=== PATIENT | female | born 1980 | race American Indian/Alaskan Native ===

== ENCOUNTER 2016-06-27 13:04 | Outpatient (CLI) | payer MEDICARE ==
--- NOTE | 2016-06-27 14:34 | XRay Report ---
ABDOMEN RADIOGRAPHS INDICATION: Vena cava syndrome. COMPARISON: 08/14/2015 FINDINGS: Frontal abdominal radiographs demonstrate interval right groin port removal. Stable IVC filter projecting at L2-L3 on the right and adjacent cholecystectomy clips. An orthopedic compression screw in the right femoral head and neck again noted as also chronic left hip deformity with dislocation and superior migration of the left femur. Osteopenia/osteoporosis. Nonobstructive bowel gas pattern. Hepatomegaly suspected. Clear visualized lung bases. Top normal heart size. CONCLUSION: Various findings, as above. Please correlate. Thank you for the opportunity to participate in this patient's care.
== END 2016-06-27 13:05 | disposition home or self-care (01) ==
LOC: VAS 13:04
PROVIDERS: ATTEND Internal Medicine Hematology & Oncology
DX: I87.1 Compression of vein (principal); M79.89 Other specified soft tissue disorders; Z86.718 Personal history of other venous thrombosis and embolism
CPT/HCPCS: 74000; 93970

== ENCOUNTER 2016-11-16 05:24 | Inpatient (IN) | payer MEDICARE ==
[2016-11-16] MEDS ORDERED: NACL 0.9% 1000 ML 1,000 ML IV ONE (16:15)
[2016-11-16] MEDS ORDERED: BENADRYL IV ONE (16:15)
[2016-11-16] MEDS ORDERED: DILAUDID IV ONE ×2 (16:15→19:14)
--- NOTE | 2016-11-16 16:20 | Emergency Department Report ---
ED General Adult HPI - General Chief complaint: Sickle Cell Crisis Stated complaint: SICKLE CELL CRISIS Time Seen by Provider: 11/16/16 15:51 Source: patient, family Mode of arrival: Ambulatory Limitations: No Limitations - History of Present Illness Initial comments: Recent female here with complaint of sickle cell pain. 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 This is not been able to manage her pain over the course of last week. She is complaining of diffuse leg and arm pain. She has some mild chest pain. She did not feel that this is acute chest. No fevers chills. She's does not have a cough. She is a known history of SVC syndrome. She is a port in her left upper thigh. -: Gradual Location: chest, upper extremity, lower extremity Radiation: non-radiation Quality: aching Consistency: constant Improves with: none, medication Worsens with: none Associated Symptoms: denies: confusion, cough, diaphoresis, fever/chills - Related Data Home Medications Medication Instructions Recorded Confirmed Last Taken Folic Acid [Folvite] 1 mg PO DAILY 06/01/13 11/16/16 05/04/15 Methadone [Dolophine] 20 mg PO Q8H 03/27/15 11/16/16 07/21/16 Previous Rx's Medication Instructions Recorded Last Taken Type Oxycodone HCl/Acetaminophen 1 each PO Q6HR PRN #15 tablet 10/09/14 05/03/15 Rx [Percocet 7.5/325 mg] Allergies Allergy/AdvReac Type Severity Reaction Status Date / Time ketorolac tromethamine Allergy Hives Verified 06/27/14 09:21 [From Toradol] metoclopramide HCl Allergy Unknown Verified 06/27/14 09:21 [From Reglan] morphine Allergy Hives Verified 06/27/14 09:21 propoxyphene napsylate Allergy Hives Verified 06/27/14 09:21 [From Darvocet-N 100] ceftriaxone sodium AdvReac Unknown Verified 06/27/14 09:21 [From Rocephin] heparin AdvReac Bleeding Verified 06/27/14 09:21 ED Review of Systems ROS: Stated complaint: SICKLE CELL CRISIS Other details as noted in HPI Comment: All other systems reviewed and negative Constitutional: denies: chills, fever Eyes: denies: eye pain, eye discharge, vision change ENT: denies: ear pain, throat pain Respiratory: denies: cough, shortness of breath, wheezing Cardiovascular: chest pain. denies: palpitations Endocrine: no symptoms reported Gastrointestinal: denies: abdominal pain, nausea, diarrhea Genitourinary: denies: urgency, dysuria, discharge Musculoskeletal: joint swelling, arthralgia. 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 7 ports total the last one being placed in April of this year. The others had to be removed secondary toinfection.IVC filterPort Placed to Right groin. - Family History Family history: no significant - Social History Smoking Status: Never Smoker Substance Use Type: None - Medications Home Medications: Home Medications Medication Instructions Recorded Confirmed Last Taken Type Folic Acid [Folvite] 1 mg PO DAILY 06/01/13 11/16/16 05/04/15 History Oxycodone HCl/Acetaminophen 1 each PO Q6HR PRN #15 tablet 10/09/14 11/16/16 Rx [Percocet 7.5/325 mg] Methadone [Dolophine] 20 mg PO Q8H 03/27/15 11/16/16 07/21/16 History ED Physical Exam - General Limitations: No Limitations General appearance: alert, in no apparent distress - Head Head exam: Present: atraumatic, normocephalic - Eye Eye exam: Present: normal appearance - ENT ENT exam: Present: mucous membranes moist - Neck Neck exam: Present: normal inspection, other (swelling in the face and veins in upper chest). Absent: tenderness, lymphadenopathy - Respiratory Respiratory exam: Present: normal lung sounds bilaterally, other (known history of SVC syndrome). Absent: respiratory distress, chest wall tenderness - Cardiovascular Cardiovascular Exam: Present: regular rate, normal rhythm. Absent: systolic murmur, diastolic murmur, rubs, gallop - GI/Abdominal GI/Abdominal exam: Present: soft, normal bowel sounds. Absent: distended, tenderness - Extremities Exam Extremities exam: Present: normal inspection, other (port in the left upper thigh) - Back Exam Back exam: Present: normal inspection - Neurological Exam Neurological exam: Present: alert, oriented X3 - Psychiatric Psychiatric exam: Present: normal affect, normal mood - Skin Skin exam: Present: warm, dry, intact, normal color. Absent: rash ED Course Vital Signs 11/16/16 05:25 Temperature 98.5 F Pulse Rate 90 Blood Pressure 121/50 ED Medical Decision Making - Lab Data Result diagrams: 11/16/16 18:21 11/16/16 18:21 - Medical Decision Making 36-year-old female with history of sickle cell and SVC syndrome here with complaint of total body pain. Denies fevers chills nausea vomiting. States some mild chest pain but does not feel this is consistent with acute chest. Plan to treat with pain and will plan to reassess patient. Patient with extremely low hemoglobin of 3.1. Type and screen ordered. Plan to transfuse patient admit to the intensive care unit. Type and crossmatch ordered blood ordered. Discussed case with hospital medicine. Portions of this chart were dictated with dictation software. There may be dictation errors contained within this note. Critical Care Time: Yes Critical care attestation.: If time is entered above; I have spent that time in minutes in the direct care of this critically ill patient, excluding procedure time. Critical Care Time: 45 ED Disposition Clinical Impression: Sickle cell anemia with crisis, Anemia Disposition: [id number] OP ADMIT IP TO THIS HOSP Is pt being admited?: Yes Condition: Critical Referrals: ZEINAB BECKHAM DO [Primary Care Provider] - 3-5 Days
[2016-11-16 18:42] LABS: Mean Corpuscular HGB Conc 33 % (30-34); Mean Corpuscular Hemoglobin 28 pg (28-32); Mean Corpuscular Volume 82 fl (79-97); Platelet Count 209 K/mm3 (140-440); Red Blood Count 1.14 M/mm3 (3.65-5.03)
[2016-11-16 18:43] LABS: Reticulocyte % 2.18 % (0.78-2.58)
[2016-11-16 18:52] LABS: INR 1.27 (0.87-1.13)
[2016-11-16 18:57] LABS: Hematocrit 9.4 % (30.3-42.9); Hemoglobin 3.1 gm/dl (10.1-14.3); Red Cell Distribution Width 26.2 % (13.2-15.2)
[2016-11-16 19:00] LABS: Albumin 3.8 g/dL (3.9-5); Albumin/Globulin Ratio 1.1 %; Bilirubin,Total 2.8 mg/dL (0.1-1.2); Calcium 8.4 mg/dL (8.4-10.2); Chloride 93.9 mmol/L (98-107); Potassium 4.7 mmol/L (3.6-5.0); Total Protein 7.3 g/dL (6.3-8.2)
[2016-11-16 20:12] LABS: Basophils % (Manual) 0 % (0.0-1.8); Blastocytes % (Manual) 0 %; Eosinophils % (Manual) 0 % (0.0-4.3)
[2016-11-16 20:16] LABS: Anisocytosis 2+; Diff Status Complete; Hypochromasia 2+; Platelet Estimate Consistent w Auto; Polychromasia 1+; Sickle Cells 2+; Target Cells 2+
[2016-11-16 20:24] LABS: White Blood Count 17.5 K/mm3 (4.5-11.0)
[2016-11-16] MEDS ORDERED: NACL 0.9% 500 ML 500 ML IV ONE (20:52)
[2016-11-16] MEDS ORDERED: DILAUDID ONE (22:05)
[2016-11-16] MEDS ORDERED: ZOFRAN IV PRN (22:27)
[2016-11-16] MEDS ORDERED: TYLENOL PO PRN (22:30)
[2016-11-17] MEDS: NACL 0.9% 1000 ML 1,000 ML IV SCH ×2 (00:50→06:19)
[2016-11-17 01:04] LABS: Hematocrit 10.3 % (30.3-42.9)
[2016-11-17 01:05] LABS: Hemoglobin 3.3 gm/dl (10.1-14.3)
[2016-11-17] MEDS: DILAUDID IV PRN ×4 (01:41→21:04)
[2016-11-17] MEDS: DOLOPHINE PO SCH ×3 (06:18→21:05)
--- NOTE | 2016-11-17 07:26 | History and Physical Report ---
CHIEF COMPLAINT: Generalized body pain. Other complaints include weakness. HISTORY OF PRESENT ILLNESS: The patient is a 36-year-old female with sickle cell anemia, presenting with pain all over. The patient says she has not been able to manage her pain, going on for the last few days, on oral pain medication. She said that the pain is mostly in the limbs and also a little bit in the chest. There was no history of fever or chills and no history of cough. The patient also denies history of shortness of breath and there was no history of nausea, vomiting or diarrhea. The patient presented to the Emergency Room. PAST MEDICAL HISTORY: Pertinent for sickle cell anemia. Also, the patient has past history of hypertension, deep vein thrombosis, pulmonary embolism as well as avascular necrosis of bilateral hips and bilateral shoulder. Also, the patient has past history of SVT. PAST SURGICAL HISTORY: Pertinent for cholecystectomy, x 2, tubal ligation, bilateral hip surgery, PowerPort abscess removal from the throat, placement of PowerPort in the chest area. FAMILY HISTORY: Noncontributory. SOCIAL HISTORY: The patient does not smoke, does not drink alcohol and does not use illicit drugs. MEDICATIONS: The patient is on folic acid 1 by mouth daily, Percocet 7.5/325 mg one by mouth every 6 hours as needed for pain and methadone 20 mg by mouth every 8 hours. ALLERGIES: THE PATIENT IS ALLERGIC TO KETOROLAC . Also, THE PATIENT IS ALLERGIC TO METOCLOPRAMIDE AND MORPHINE. REVIEW OF SYSTEMS: CONSTITUTIONAL: There is no fever, no chills, no diaphoresis. HEENT: There is no headache or sore throat. CARDIOVASCULAR: There is some mild chest discomfort, but no orthopnea. RESPIRATORY: There is no shortness of breath and no cough. GASTROINTESTINAL: There is no nausea, no vomiting, no abdominal pain, diarrhea or constipation. NEUROLOGICAL: There is no numbness, no dizziness, no altered mental status. MUSCULOSKELETAL: Generalized limb pain noted and pain all over the body also noted. There is no joint swelling. DERMATOLOGICAL: There is no skin rash or itching. GENITOURINARY: There is no dysuria, hematuria or flank pain. Rest of system review is normal. PHYSICAL EXAMINATION: GENERAL: At the time of exam, the patient was found to be alert and oriented x 3 and in mild distress due to body pain. VITAL SIGNS: Shows temperature of 98.6 degrees Fahrenheit, pulse of 92, respirations 18, blood pressure 92/34, O2 sat of 100% on room air. HEENT: Showed pupils to be equal, round, reactive to light and accommodating. Extraocular muscles are intact. NECK: Supple with no JVD or carotid bruit. CARDIOVASCULAR: Showed normal first and second heart sounds with no gallops or murmurs. RESPIRATORY: Showed good air entry on both sides of the lung with no abnormal breath sounds. GASTROINTESTINAL SYSTEM: Show abdomen to be full, soft, nontender with no organomegaly or rigidity. NEUROLOGIC: Shows no focal deficit. MUSCULOSKELETAL: Show no joint swelling or tenderness. DERMATOLOGICAL SYSTEM: Show no skin rash. GENITOURINARY: Showing no costovertebral angle tenderness. PERTINENT LABORATORY DATA AND IMAGING STUDIES: The patient's coagulation studies came back with slightly elevated PT of 15.8 and elevated INR of 1.27. The patient's chemistry shows low sodium of 134 with low chloride of 93.9 and low CO2 of 20 with elevated BUN of 69 and elevated creatinine of 2.3. The patient's total bilirubin was high with a value of 2.8 and liver transaminases show slight increase in AST of 62 with normal ALT. The patient's CBC showed an elevated white count of 17,500 with low hemoglobin of 3.1 and low hematocrit of 9.4. MCV level is normal. IMAGING STUDIES: The patient had chest x-ray done with no report of any acute lesion. DIAGNOSES: 1. Sickle cell vaso-occlusive crisis. 2. Renal insufficiency. PLAN: The patient will be admitted to medical floor on telemetry and will be on IV normal saline at 125 mL an hour until blood arrives and the patient will have transfusion of packed red blood cells ordered in the Emergency Room. The patient will be on IV Dilaudid 1 mg every 2 hours as needed for pain and will be on IV Zofran 4 mg every 8 hours as needed for nausea and vomiting. The patient will be on Tylenol 650 mg every 4 hours as needed for fever and headache and will have Hematology consult with office services clerk Dr. Morgan. The patient's diet will be low sodium diet and the patient's home medications will be reconciled and started. According to the patient, she will be on Restoril 15 mg at bedtime for insomnia. The patient will also have Nephrology consult with plumber maintenance Dr. Le for renal insufficiency. JOB# [id number] OCN/NTS MARVIND
--- NOTE | 2016-11-17 08:41 | XRay Report ---
Portable chest: Chest pain; sickle cell. The heart is big. There is mild vascular congestion. The interstitial markings are diffusely coarse throughout both lungs. No pleural effusions identified. Sclerotic areas in both of the humerus head consistent with infarcts. Compared to prior study of July 22, 2016 been no significant changes. Impression: Cardiopulmonary and bone findings consistent with sickle cell disease. No acute findings noted.
--- NOTE | 2016-11-17 08:59 | Progress Note ---
Assessment and Plan Assessment and plan: Kamila is a36 year old female with hx of Sickle cell presenting to the hosptial with complaint of chest pain and b/l lower ext pain with no associated cough or shortness of breath and on admission noted to have severe Anemia with TEODORO Sickle Cell Crisis * Supportive care, pain control, mvi, folic acid, Hematology consult, change fluids to D51/2NS Severe Anemia secondary to Sickle cell * 2 units PRBC ordered, check Retic count, Acute kidney injury possible vasomotor nephropathy * Nephrology input noted. continue hydration, follow pending labs Atypical chest pain- Likely demand ischemia * supportive care, monitor BP, low H/H precludes ASA. check lipid profile. Monitor cardiac enzyme B/L lower ext pain * R/O DVT. HX OF SVC syndrome DVT/GI prophy * SCD AND H2 altagracia History Interval history: patient seen and examined, resting in no acute distress. Hospitalist Physical - Constitutional Vitals: Temp Pulse Resp BP Pulse Ox 99.7 F H 94 H 20 115/53 95 11/17/16 01:14 11/17/16 05:33 11/17/16 05:33 11/17/16 05:33 11/17/16 01:00 General appearance: Present: no acute distress, well-nourished - EENT Eyes: Present: PERRL, EOM intact ENT: hearing intact, clear oral mucosa - Neck Neck: Present: supple, normal ROM - Respiratory Respiratory effort: normal Respiratory: bilateral: CTA - Cardiovascular Rhythm: regular Heart Sounds: Present: S1 & S2 - Extremities Extremities: pulses intact, pulses symmetrical, No edema - Abdominal General gastrointestinal: soft, non-tender, non-distended, normal bowel sounds - Integumentary Integumentary: Present: clear, warm, dry - Psychiatric Psychiatric: appropriate mood/affect, cooperative - Neurologic Neurologic: CNII-XII intact - Allied Health Allied health notes reviewed: nursing Results - Labs CBC & Chem 7: 11/17/16 23:16 11/16/16 18:21 Labs: Laboratory Last Values WBC 17.5 K/mm3 (4.5-11.0) H 11/16/16 18:21 RBC 1.14 M/mm3 (3.65-5.03) L 11/16/16 18:21 Hgb 3.3 gm/dl (10.1-14.3) L* 11/17/16 00:14 Hct 10.3 % (30.3-42.9) L* 11/17/16 00:14 MCV 82 fl (79-97) 11/16/16 18:21 MCH 28 pg (28-32) 11/16/16 18:21 MCHC 33 % (30-34) 11/16/16 18:21 RDW 26.2 % (13.2-15.2) H 11/16/16 18:21 Plt Count 209 K/mm3 (140-440) 11/16/16 18:21 Lymph # Deep Fryer Assembler 11/16/16 18:21 Add Manual Diff Complete 11/16/16 18:21 Total Counted 100 11/16/16 18:21 Seg Neuts % (Manual) 54.0 % (40.0-70.0) 11/16/16 18:21 Band Neutrophils % 20.0 % 11/16/16 18:21 Lymphocytes % (Manual) 18.0 % (13.4-35.0) 11/16/16 18:21 Reactive Lymphs % (Man) 0 % 11/16/16 18:21 Monocytes % (Manual) 8.0 % (0.0-7.3) H 11/16/16 18:21 Eosinophils % (Manual) 0 % (0.0-4.3) 11/16/16 18:21 Basophils % (Manual) 0 % (0.0-1.8) 11/16/16 18:21 Metamyelocytes % 0 % 11/16/16 18:21 Myelocytes % 0 % 11/16/16 18:21 Promyelocytes % 0 % 11/16/16 18:21 Blast Cells % 0 % 11/16/16 18:21 Nucleated RBC % 156.0 % (0.0-0.9) H 11/16/16 18:21 Seg Neutrophils # Man 1.1 K/mm3 (1.8-7.7) L 11/16/16 18:21 Band Neutrophils # 0.4 K/mm3 11/16/16 18:21 Lymphocytes # (Manual) 0.4 K/mm3 (1.2-5.4) L 11/16/16 18:21 Abs React Lymphs (Man) 0.0 K/mm3 11/16/16 18:21 Monocytes # (Manual) 0.2 K/mm3 (0.0-0.8) 11/16/16 18:21 Eosinophils # (Manual) 0.0 K/mm3 (0.0-0.4) 11/16/16 18:21 Basophils # (Manual) 0.0 K/mm3 (0.0-0.1) 11/16/16 18:21 Metamyelocytes # 0.0 K/mm3 11/16/16 18:21 Myelocytes # 0.0 K/mm3 11/16/16 18:21 Promyelocytes # 0.0 K/mm3 11/16/16 18:21 Blast Cells # 0.0 K/mm3 11/16/16 18:21 WBC Morphology Not Reportable 11/16/16 18:21 Hypersegmented Neuts Not Reportable 11/16/16 18:21 Hyposegmented Neuts Not Reportable 11/16/16 18:21 Hypogranular Neuts Not Reportable 11/16/16 18:21 Smudge Cells Not Reportable 11/16/16 18:21 Toxic Granulation Not Reportable 11/16/16 18:21 Toxic Vacuolation Not Reportable 11/16/16 18:21 Dohle Bodies Not Reportable 11/16/16 18:21 Pelger-Huet Anomaly Not Reportable 11/16/16 18:21 Maddi Rods Not Reportable 11/16/16 18:21 Platelet Estimate Consistent w auto 11/16/16 18:21 Clumped Platelets Not Reportable 11/16/16 18:21 Plt Clumps, EDTA Not Reportable 11/16/16 18:21 Large Platelets Not Reportable 11/16/16 18:21 Giant Platelets Not Reportable 11/16/16 18:21 Platelet Satelliting Not Reportable 11/16/16 18:21 Plt Morphology Comment Not Reportable 11/16/16 18:21 RBC Morphology Not Reportable 11/16/16 18:21 Dimorphic RBCs Not Reportable 11/16/16 18:21 Polychromasia 1+ 11/16/16 18:21 Hypochromasia 2+ 11/16/16 18:21 Poikilocytosis Not Reportable 11/16/16 18:21 Anisocytosis 2+ 11/16/16 18:21 Microcytosis Not Reportable 11/16/16 18:21 Macrocytosis Not Reportable 11/16/16 18:21 Spherocytes Not Reportable 11/16/16 18:21 Pappenheimer Bodies Not Reportable 11/16/16 18:21 Sickle Cells 2+ 11/16/16 18:21 Target Cells 2+ 11/16/16 18:21 Tear Drop Cells Not Reportable 11/16/16 18:21 Ovalocytes Not Reportable 11/16/16 18:21 Helmet Cells Not Reportable 11/16/16 18:21 [place] Bodies Not Reportable 11/16/16 18:[address] Rings Not Reportable 11/16/16 18:21 [place] Cells Not Reportable 11/16/16 18:21 Bite Cells Not Reportable 11/16/16 18:21 Crenated Cell Not Reportable 11/16/16 18:21 Elliptocytes Not Reportable 11/16/16 18:21 Acanthocytes (Spur) Not Reportable 11/16/16 18:21 Rouleaux Not Reportable 11/16/16 18:21 Hemoglobin C Crystals Not Reportable 11/16/16 18:21 Schistocytes Not Reportable 11/16/16 18:21 Malaria parasites Not Reportable 11/16/16 18:21 Percent Retic 2.18 % (0.78-2.58) 11/16/16 18:21 Hieu Bodies Not Reportable 11/16/16 18:21 Hem Pathologist Commnt No 11/16/16 18:21 PT 15.8 Sec. (12.2-14.9) H 11/16/16 18:21 INR 1.27 (0.87-1.13) H 11/16/16 18:21 Sodium 134 mmol/L (137-145) L 11/16/16 18:21 Potassium 4.7 mmol/L (3.6-5.0) 11/16/16 18:21 Chloride 93.9 mmol/L (98-107) L 11/16/16 18:21 Carbon Dioxide 20 mmol/L (22-30) L 11/16/16 18:21 Anion Gap 25 mmol/L 11/16/16 18:21 BUN 69 mg/dL (7-17) H 11/16/16 18:21 Creatinine 2.3 mg/dL (0.7-1.2) H 11/16/16 18:21 Estimated GFR 29 ml/min 11/16/16 18:21 BUN/Creatinine Ratio 30.00 % 11/16/16 18:21 Glucose 92 mg/dL (65-100) 11/16/16 18:21 Calcium 8.4 mg/dL (8.4-10.2) 11/16/16 18:21 Total Bilirubin 2.80 mg/dL (0.1-1.2) H 11/16/16 18:21 AST 62 units/L (5-40) H 11/16/16 18:21 ALT 16 units/L (7-56) 11/16/16 18:21 Alkaline Phosphatase 111 units/L (35-129) 11/16/16 18:21 Total Protein 7.3 g/dL (6.3-8.2) 11/16/16 18:21 Albumin 3.8 g/dL (3.9-5) L 11/16/16 18:21 Albumin/Globulin Ratio 1.1 % 11/16/16 18:21 Blood Type O POSITIVE 11/17/16 00:14 Antibody Screen Negative 11/17/16 00:14 Crossmatch See Detail 11/17/16 00:14 - Imaging and Cardiology Chest x-ray: image reviewed (no evidence of pulmonary disease)
--- NOTE | 2016-11-17 09:12 | Consultation ---
History of Present Illness - Reason for Consult Consult date: 11/17/16 acute renal failure - History of Present Illness History obtained from medical records due to mental status - patient is lethargic after receiving pain medication. Mrs. Graff is as 36yo with hx of sickle cell disease who presents to the ED with diffuse pain - legs, arms, chest worsening over the past week despite Methadone. There is no history of fever, chills or sweats. 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 in 2009 at [facility]; calcified spleen) Past Surgical History: Other (As above) Social history: no significant social history Medications and Allergies Allergies Allergy/AdvReac Type Severity Reaction Status Date / Time ketorolac tromethamine Allergy Hives Verified 06/27/14 09:21 [From Toradol] metoclopramide HCl Allergy Unknown Verified 06/27/14 09:21 [From Reglan] morphine Allergy Hives Verified 06/27/14 09:21 propoxyphene napsylate Allergy Hives Verified 06/27/14 09:21 [From Darvocet-N 100] ceftriaxone sodium AdvReac Unknown Verified 06/27/14 09:21 [From Rocephin] heparin AdvReac Bleeding Verified 06/27/14 09:21 Home Medications Medication Instructions Recorded Confirmed Last Taken Type Folic Acid [Folvite] 1 mg PO DAILY 06/01/13 11/16/16 05/04/15 History Oxycodone HCl/Acetaminophen 1 each PO Q6HR PRN #15 tablet 10/09/14 11/16/16 Rx [Percocet 7.5/325 mg] Methadone [Dolophine] 20 mg PO Q8H 03/27/15 11/16/16 07/21/16 History Active Meds: Active Medications Acetaminophen (Tylenol) 650 mg PO Q4H PRN PRN Reason: For Pain/Fever/Headache Folic Acid (Folvite) 1 mg PO DAILY [facility] Hydromorphone HCl (Dilaudid) 1 mg IV Q2H PRN PRN Reason: Pain , Severe (7-10) Last Admin: 11/17/16 01:41 Dose: 1 mg Dextrose/Sodium Chloride (D5/0.45ns) 1,000 mls @ 125 mls/hr IV DIRECT [facility] Influenza Virus Vaccine Quadrival (Fluarix Quad [id number](36 Mos+)) 0.5 ml IM .ONCE ONE Stop: 11/17/16 12:01 Methadone HCl (Dolophine) 20 mg PO Q8HR [facility] Last Admin: 11/17/16 06:18 Dose: 20 mg Ondansetron HCl (Zofran) 4 mg IV Q6H PRN PRN Reason: Nausea And Vomiting Temazepam (Restoril) 15 mg PO QHS PRN PRN Reason: Insomnia Review of Systems ROS unobtainable: due to mental status Exam - Vital Signs Vital signs: Vital Signs Temp Pulse BP 98.5 F 90 121/50 11/16/16 05:25 11/16/16 05:25 11/16/16 05:25 - General Appearance General appearance: well-developed, well-nourished EENT: ATNC Respiratory: Clear to Ascultation Heart: regular Gastrointestinal: Present: normal. Absent: tenderness, distended Integumentary: no rash Neurologic: other (somnolent - awakens to verbal stimuli but quickly returns to sleep ) Musculoskeletal: Present: other (no edema) Results - Lab Results 11/17/16 09:13 11/16/16 18:21 Most recent lab results Calcium 8.4 mg/dL (8.4-10.2) 11/16/16 18:21 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 Plan: * No acute indication for CERTIFIED ORTHOTIST * Cont IVF for hydration * Transfusion per primary team * Consider heme consult * Obtain renal u/s * Obtain urine studies and serologic evaluation * Avoid nephrotoxins * Pain management per primary team
[2016-11-17 09:36] LABS: Reticulocyte % 2.19 % (0.78-2.58)
[2016-11-17 09:40] LABS: Hematocrit 8.8 % (30.3-42.9); Hemoglobin 2.9 gm/dl (10.1-14.3)
[2016-11-17 09:59] LABS: Creatine Kinase MB 2.1 ng/mL (0.0-4.0)
[2016-11-17 10:01] LABS: Creatine Kinase 170 units/L (30-135)
[2016-11-17] MEDS: FOLVITE PO SCH (11:14)
[2016-11-17] MEDS: Fluarix Quad 2017-2018(36 MOS+) IM ONE ×2 (11:19→17:10)
--- NOTE | 2016-11-17 13:34 | Admit Criteria Form ---
Admission Criteria Documentation: SICKLE CELL DISEASE Clinical Indications for Admission to Inpatient Care (Place 'X' for any and all applicable criteria): Admission is indicated for 1 or more of the following(1)(2)(3)(4): [X]I. Inpatient admission required rather than observation care (see also observation care guidelines) because of 1 or more of the following(19): [ ]a) Altered mental status [ ]b) High fever or infection requiring inpatient admission as indicated by 1 or more of the following: [ ]A. Appropriate outpatient observation care antimicrobial treatment unavailable, not effective, or not appropriate for infection [ ]B. Documented bacteremia [ ]C. Temp >104.9F (40.5C) (oral) [ ]D. Temp >103.1F (oral) or <96.8F(rectal) that does not respond to all emergency treatment measures [ ]c) Supplemental O2 or respiratory treatments for > 24 hrs that is performable only in acute inpatient setting [X]d) Continuous parenteral narcotics or other major pain intervention for over 24 hours performable only in acute inpatient setting [ ]e) Exchange transfusion [X]f) Other condition, treatment or monitoring requiring inpatient admission [ ]II. Acute chest syndrome indicated by ALL of the following (10): [ ]a) New alveolar infiltrate involving at least one lung segment [ ]b) Associated pulmonary symptoms or findings as indicated by1 or more of the following: [ ]i) Chest pain [ ]ii) Hypoxia [ ]iii) Tachypnea/dyspnea [ ]iv) Abnormal breath sounds (wheezing, crackles) [ ]v) Cough [ ]vi) Sputum production [ ]III. Hypoxemia or acidosis (more severe than baseline) [ ]IV. Emergent surgery needed (eg, acute cholecystitis) [ ]V. -related complication(11) [ ]. Splenic or hepatic sequestration(12) [ ]VII. Aplastic crisis [ ]VIII. Priapism or other vascular complication(13) [ ]IX. Traumatic hyphema [A](14) [ ]X. Acute renal failure [ ]XI. Signs or symptoms of central nervous system injury indicated by 1 or more of the following: [ ]a) Stroke(9) [ ]b) Seizure [ ]c) Other significant central nervous system symptom or event Extended stay beyond goal length of stay may be needed for: [ ]a) Inadequate pain control [ ]b) Acute chest syndrome [ ]c) Sequestration or aplastic crisis (12) [ ]d) Pneumonia and asthma exacerbation [ ]e) Neurologic or vascular complications (25) [ ]f) Infection (eg, osteomyelitis) that requires ongoing treatment) The original [facility] [employer] content created by [facility] [employer] has been revised. The portions of the content which have been revised are identified through the use of italic text or in bold, and [facility] [employer] has neither reviewed nor approved the modified material. All other unmodified content is copyright [facility] [employer]. Please see references footnoted in the original [facility] [employer] edition 2017 Admission Criteria Met: Yes
--- NOTE | 2016-11-17 14:48 | Ultrasound Report ---
Renal ultrasound: Acute renal failure. The right renal length is 10.4 cm and the left is 11.4 cm. Cortical thickness is maintained in both kidneys. Both kidneys are somewhat echogenic. 6 mm. peripheral right renal cyst. No other renal mass identified in either kidney. No hydronephrosis. Survey imaging through the urinary bladder is grossly normal. Of incidental note is a small volume of right pleural fluid. Impression: Mild increased echogenic renal pattern consistent with medical renal disease.
--- NOTE | 2016-11-17 17:05 | Vascular Lab Report ---
LOWER EXTREMITY VENOUS DUPLEX: REASON FOR EXAM: Pain and swelling of the lower extremities. COMMENTS ON THE RIGHT: All veins visualized are freely compressible without evidence of internal echogenicity. Flow is spontaneous and phasic throughout. COMMENTS ON THE LEFT: Nonocclusive thrombus is noted in the common femoral vein. The remaining veins visualized are freely compressible without evidence of internal echogenicity. Spontaneous and phasic flow is present proximally. IMPRESSION: Age indeterminate DVT in the left lower extremity
[2016-11-17 23:44] LABS: Hematocrit 12.9 % (30.3-42.9); Hemoglobin 4.4 gm/dl (10.1-14.3)
[2016-11-17] MEDS ORDERED: NACL 0.9% 500 ML 500 ML IV ONE (23:48)
[2016-11-18] MEDS: D5/0.45NS 1,000 ML IV SCH (02:37)
[2016-11-18] MEDS: DILAUDID IV PRN ×4 (06:34→21:51)
[2016-11-18] MEDS: DOLOPHINE PO SCH ×3 (06:34→21:49)
[2016-11-18] MEDS ORDERED: NACL 0.9% 500 ML 500 ML ONE (07:04)
--- NOTE | 2016-11-18 09:00 | Progress Note ---
Assessment and Plan Assessment and plan: Kamila is a36 year old female with hx of Sickle cell presenting to the hosptial with complaint of chest pain and b/l lower ext pain with no associated cough or shortness of breath and on admission noted to have severe Anemia with TEODORO Sickle Cell Crisis * Supportive care, pain control, mvi, folic acid, Hematology consult, change fluids to D51/2NS Severe Anemia secondary to Sickle cell * 2 units PRBC GIVEN, additional 2 units ordered, check Retic count, Acute kidney injury possible vasomotor nephropathy * Nephrology input noted. continue hydration, follow pending labs Atypical chest pain- Likely demand ischemia * supportive care, monitor BP, low H/H precludes ASA. check lipid profile. Monitor cardiac enzyme Chronic lower ext DVT * Pain control * Severe anemia precludes use of anticoagulation * Follow with Hematology outpatient for close monitoring. Discussed with Dr Morgan Hyperbilirubenmia * Likely secondary to hemolysis. No evidence of abdominal dyscomfort. Will monitor. * U/S abdomen. HX OF SVC syndrome DVT/GI prophy * SCD AND H2 altagracia History Interval history: patient seen and examined, resting in no acute distress. Hospitalist Physical - Physical exam Narrative exam: VITAL SIGNS: Reviewed. GENERAL: The patient appeared well nourished and normally developed with generalized body pain. Vital signs as documented. HEAD: No signs of head trauma. EYES: Pupils are equal. Extraocular motions intact. EARS: Hearing grossly intact. MOUTH: Oropharynx is normal. NECK: No adenopathy, no JVD. CHEST: Chest with clear breath sounds bilaterally. No wheezes, rales, or rhonchi. CARDIAC: Regular rate and rhythm. S1 and S2, without murmurs, gallops, or rubs. VASCULAR: No Edema. Peripheral pulses normal and equal in all extremities. ABDOMEN: Soft, without detectable tenderness. No sign of distention. No rebound or guarding, and no masses palpated. Bowel Sounds normal. MUSCULOSKELETAL: Good range of motion of all major joints. Extremities without clubbing, cyanosis or edema. NEUROLOGIC EXAM: Alert and oriented x 3. No focal sensory or strength deficits. Speech normal. Follows commands. PSYCHIATRIC: Mood normal. SKIN: No rash or lesions. - Constitutional Vitals: Temp Pulse Resp BP Pulse Ox 97.9 F 89 20 111/56 91 11/18/16 08:05 11/18/16 08:05 11/18/16 04:35 11/18/16 08:05 11/18/16 04:35 General appearance: Present: no acute distress, well-nourished Results - Labs CBC & Chem 7: 11/17/16 23:16 11/16/16 18:21 Labs: Laboratory Last Values WBC 17.5 K/mm3 (4.5-11.0) H 11/16/16 18:21 RBC 1.14 M/mm3 (3.65-5.03) L 11/16/16 18:21 Hgb 4.4 gm/dl (10.1-14.3) L* 11/17/16 23:16 Hct 12.9 % (30.3-42.9) L* 11/17/16 23:16 MCV 82 fl (79-97) 11/16/16 18:21 MCH 28 pg (28-32) 11/16/16 18:21 MCHC 33 % (30-34) 11/16/16 18:21 RDW 26.2 % (13.2-15.2) H 11/16/16 18:21 Plt Count 209 K/mm3 (140-440) 11/16/16 18:21 Lymph # [place] 11/16/16 18:21 Add Manual Diff Complete 11/16/16 18:21 Total Counted 100 11/16/16 18:21 Seg Neuts % (Manual) 54.0 % (40.0-70.0) 11/16/16 18:21 Band Neutrophils % 20.0 % 11/16/16 18:21 Lymphocytes % (Manual) 18.0 % (13.4-35.0) 11/16/16 18:21 Reactive Lymphs % (Man) 0 % 11/16/16 18:21 Monocytes % (Manual) 8.0 % (0.0-7.3) H 11/16/16 18:21 Eosinophils % (Manual) 0 % (0.0-4.3) 11/16/16 18:21 Basophils % (Manual) 0 % (0.0-1.8) 11/16/16 18:21 Metamyelocytes % 0 % 11/16/16 18:21 Myelocytes % 0 % 11/16/16 18:21 Promyelocytes % 0 % 11/16/16 18:21 Blast Cells % 0 % 11/16/16 18:21 Nucleated RBC % 156.0 % (0.0-0.9) H 11/16/16 18:21 Seg Neutrophils # Man 1.1 K/mm3 (1.8-7.7) L 11/16/16 18:21 Band Neutrophils # 0.4 K/mm3 11/16/16 18:21 Lymphocytes # (Manual) 0.4 K/mm3 (1.2-5.4) L 11/16/16 18:21 Abs React Lymphs (Man) 0.0 K/mm3 11/16/16 18:21 Monocytes # (Manual) 0.2 K/mm3 (0.0-0.8) 11/16/16 18:21 Eosinophils # (Manual) 0.0 K/mm3 (0.0-0.4) 11/16/16 18:21 Basophils # (Manual) 0.0 K/mm3 (0.0-0.1) 11/16/16 18:21 Metamyelocytes # 0.0 K/mm3 11/16/16 18:21 Myelocytes # 0.0 K/mm3 11/16/16 18:21 Promyelocytes # 0.0 K/mm3 11/16/16 18:21 Blast Cells # 0.0 K/mm3 11/16/16 18:21 WBC Morphology Not Reportable 11/16/16 18:21 Hypersegmented Neuts Not Reportable 11/16/16 18:21 Hyposegmented Neuts Not Reportable 11/16/16 18:21 Hypogranular Neuts Not Reportable 11/16/16 18:21 Smudge Cells Not Reportable 11/16/16 18:21 Toxic Granulation Not Reportable 11/16/16 18:21 Toxic Vacuolation Not Reportable 11/16/16 18:21 Dohle Bodies Not Reportable 11/16/16 18:21 Pelger-Huet Anomaly Not Reportable 11/16/16 18:21 Maddi Rods Not Reportable 11/16/16 18:21 Platelet Estimate Consistent w auto 11/16/16 18:21 Clumped Platelets Not Reportable 11/16/16 18:21 Plt Clumps, EDTA Not Reportable 11/16/16 18:21 Large Platelets Not Reportable 11/16/16 18:21 Giant Platelets Not Reportable 11/16/16 18:21 Platelet Satelliting Not Reportable 11/16/16 18:21 Plt Morphology Comment Not Reportable 11/16/16 18:21 RBC Morphology Not Reportable 11/16/16 18:21 Dimorphic RBCs Not Reportable 11/16/16 18:21 Polychromasia 1+ 11/16/16 18:21 Hypochromasia 2+ 11/16/16 18:21 Poikilocytosis Not Reportable 11/16/16 18:21 Anisocytosis 2+ 11/16/16 18:21 Microcytosis Not Reportable 11/16/16 18:21 Macrocytosis Not Reportable 11/16/16 18:21 Spherocytes Not Reportable 11/16/16 18:21 Pappenheimer Bodies Not Reportable 11/16/16 18:21 Sickle Cells 2+ 11/16/16 18:21 Target Cells 2+ 11/16/16 18:21 Tear Drop Cells Not Reportable 11/16/16 18:21 Ovalocytes Not Reportable 11/16/16 18:21 Helmet Cells Not Reportable 11/16/16 18:21 [place] Bodies Not Reportable 11/16/16 18:21 [place] Rings Not Reportable 11/16/16 18:21 [place] Cells Not Reportable 11/16/16 18:21 Bite Cells Not Reportable 11/16/16 18:21 Crenated Cell Not Reportable 11/16/16 18:21 Elliptocytes Not Reportable 11/16/16 18:21 Acanthocytes (Spur) Not Reportable 11/16/16 18:21 Rouleaux Not Reportable 11/16/16 18:21 Hemoglobin C Crystals Not Reportable 11/16/16 18:21 Schistocytes Not Reportable 11/16/16 18:21 Malaria parasites Not Reportable 11/16/16 18:21 Percent Retic 2.19 % (0.78-2.58) 11/17/16 09:13 Hieu Bodies Not Reportable 11/16/16 18:21 Hem Pathologist Commnt No 11/16/16 18:21 PT 15.8 Sec. (12.2-14.9) H 11/16/16 18:21 INR 1.27 (0.87-1.13) H 11/16/16 18:21 Sodium 134 mmol/L (137-145) L 11/16/16 18:21 Potassium 4.7 mmol/L (3.6-5.0) 11/16/16 18:21 Chloride 93.9 mmol/L (98-107) L 11/16/16 18:21 Carbon Dioxide 20 mmol/L (22-30) L 11/16/16 18:21 Anion Gap 25 mmol/L 11/16/16 18:21 BUN 69 mg/dL (7-17) H 11/16/16 18:21 Creatinine 2.3 mg/dL (0.7-1.2) H 11/16/16 18:21 Estimated GFR 29 ml/min 11/16/16 18:21 BUN/Creatinine Ratio 30.00 % 11/16/16 18:21 Glucose 92 mg/dL (65-100) 11/16/16 18:21 Calcium 8.4 mg/dL (8.4-10.2) 11/16/16 18:21 Total Bilirubin 2.80 mg/dL (0.1-1.2) H 11/16/16 18:21 AST 62 units/L (5-40) H 11/16/16 18:21 ALT 16 units/L (7-56) 11/16/16 18:21 Alkaline Phosphatase 111 units/L (35-129) 11/16/16 18:21 Total Creatine Kinase 170 units/L (30-135) H 11/17/16 09:13 CK-MB (CK-2) 2.1 ng/mL (0.0-4.0) 11/17/16 09:13 CK-MB (CK-2) Rel Index 1.2 (0-4) 11/17/16 09:13 Troponin T < 0.010 ng/mL (0.00-0.029) 11/17/16 09:13 Total Protein 7.3 g/dL (6.3-8.2) 11/16/16 18:21 Albumin 3.8 g/dL (3.9-5) L 11/16/16 18:21 Albumin/Globulin Ratio 1.1 % 11/16/16 18:21 Hepatitis A IgM Ab Non-reactive (NonReactive) 11/17/16 09:13 Hep Bs Antigen Non-reactive (Negative) 11/17/16 09:13 Hep B Core IgM Ab Non-reactive (NonReactive) 11/17/16 09:13 Hepatitis C Antibody Non-reactive (NonReactive) 11/17/16 09:13 Blood Type O POSITIVE 11/17/16 00:14 Antibody Screen Negative 11/17/16 00:14 Crossmatch See Detail 11/17/16 00:14
[2016-11-18] MEDS: FOLVITE PO SCH (12:16)
--- NOTE | 2016-11-18 13:25 | Ultrasound Report ---
Limited abdominal ultrasound: Right upper quadrant pain. The patient's gallbladder has been removed. The overall volume of the liver may be slightly increased but there no focal findings and the echogenicity is grossly normal. A small volume of perihepatic fluid is present.The CBD diameter is 3.8 mm. Unremarkable pancreas. The right renal length is 10.2 cm and the kidney is echogenically unremarkable. The transverse diameter of the proximal abdominal aorta is 1.4 cm. Impressions: Nonspecific perihepatic fluid.
[2016-11-18 16:07] LABS: Calcium 8.6 mg/dL (8.4-10.2); Chloride 97.4 mmol/L (98-107); Potassium 4.7 mmol/L (3.6-5.0)
--- NOTE | 2016-11-18 16:20 | Progress Note ---
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 Objective - Vital Signs Vital signs: Vital Signs - 12hr 11/18/16 11/18/16 11/18/16 04:35 07:24 08:05 Temperature 98.9 F 98.0 F 97.9 F Pulse Rate 90 89 Respiratory 20 Rate Blood Pressure 104/53 111/56 Blood Pressure [Left] O2 Sat by Pulse 91 Oximetry 11/18/16 11/18/16 11/18/16 08:32 09:02 09:32 Temperature 98.0 F 98.2 F 98.2 F Pulse Rate 64 87 86 Respiratory 20 20 Rate Blood Pressure 106/53 100/51 101/51 Blood Pressure [Left] O2 Sat by Pulse Oximetry 11/18/16 11/18/16 11/18/16 10:02 10:31 10:32 Temperature 98.1 F 98.2 F 98.6 F Pulse Rate 86 88 87 Respiratory 20 22 20 Rate Blood Pressure 100/51 106/53 113/57 Blood Pressure [Left] O2 Sat by Pulse Oximetry 11/18/16 11/18/16 11/18/16 14:30 14:45 15:00 Temperature 98.3 F 98.4 F 98.8 F Pulse Rate 81 80 82 Respiratory 20 20 18 Rate Blood Pressure 105/53 99/54 Blood Pressure [Left] O2 Sat by Pulse Oximetry 11/18/16 11/18/16 15:30 16:09 Temperature 98.8 F 98.7 F Pulse Rate 81 81 Respiratory 20 20 Rate Blood Pressure 109/53 Blood Pressure 109/53 [Left] O2 Sat by Pulse Oximetry - General Appearance General appearance: well-developed, well-nourished EENT: ATNC Respiratory: Present: Clear to Ascultation Cardiology: regular, S1S2 Gastrointestinal: normal Integumentary: no rash Neurologic: no focal deficit Musculoskeletal: other (no edema) Psychiatric: cooperative - Lab 11/17/16 23:16 11/18/16 15:34 Most recent lab results Calcium 8.6 mg/dL (8.4-10.2) 11/18/16 15:34
[2016-11-18 21:19] LABS: Hematocrit 18.5 % (30.3-42.9)
[2016-11-19] MEDS: DOLOPHINE PO SCH ×3 (06:01→21:31)
[2016-11-19] MEDS: D5/0.45NS 1,000 ML IV SCH ×2 (06:05→16:00)
[2016-11-19] MEDS: DILAUDID IV PRN ×5 (06:14→21:31)
[2016-11-19 07:51] LABS: Mean Corpuscular HGB Conc 33 % (30-34); Mean Corpuscular Hemoglobin 28 pg (28-32); Mean Corpuscular Volume 86 fl (79-97); Platelet Count 159 K/mm3 (140-440); Red Blood Count 2.07 M/mm3 (3.65-5.03); White Blood Count 16.4 K/mm3 (4.5-11.0)
[2016-11-19 07:58] LABS: Albumin 3.5 g/dL (3.9-5); Bilirubin,Total 1.9 mg/dL (0.1-1.2); Total Protein 7.1 g/dL (6.3-8.2)
[2016-11-19 07:59] LABS: Chloride 98.1 mmol/L (98-107); Potassium 4.2 mmol/L (3.6-5.0)
[2016-11-19 08:11] LABS: Red Cell Distribution Width 22.2 % (13.2-15.2)
[2016-11-19 08:13] LABS: Hematocrit 17.9 % (30.3-42.9); Hemoglobin 5.9 gm/dl (10.1-14.3)
[2016-11-19] MEDS: FOLVITE PO SCH (09:01)
--- NOTE | 2016-11-19 13:16 | Progress Note ---
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 Plan: * Renal function continues to improve - no acute indication for CLERICAL AND OFFICE SUPPORT WORKERS * Cont IVF for hydration * Transfusion per primary team * Consider heme consult * Await urine studies/serologic evaluation * Avoid nephrotoxins * Pain management per primary team * AM labs Subjective Date of service: 11/19/16 Interval history: Patient has no complaints today - pain control improved Objective - Vital Signs Vital signs: Vital Signs - 12hr 11/19/16 11/19/16 11/19/16 01:18 03:00 05:39 Temperature 97.8 F Pulse Rate 84 85 88 Respiratory Rate Blood Pressure 94/56 Blood Pressure 95/43 [Left] O2 Sat by Pulse 86 89 Oximetry 11/19/16 11/19/16 11/19/16 05:40 06:43 08:43 Temperature 98.4 F Pulse Rate 89 89 Respiratory Rate Blood Pressure Blood Pressure [Left] O2 Sat by Pulse 91 95 Oximetry 11/19/16 11/19/16 11/19/16 08:44 08:48 09:22 Temperature 97.4 F L Pulse Rate 88 91 H Respiratory 20 20 20 Rate Blood Pressure Blood Pressure 116/50 [Left] O2 Sat by Pulse 92 92 Oximetry 11/19/16 11/19/16 11:52 11:55 Temperature 97.6 F Pulse Rate 77 Respiratory 20 Rate Blood Pressure 110/54 Blood Pressure [Left] O2 Sat by Pulse 99 Oximetry - General Appearance General appearance: well-developed, well-nourished EENT: ATNC Neck: no JVD Respiratory: Present: Clear to Ascultation Cardiology: regular, S1S2 Gastrointestinal: normal, no tenderness, no distended Integumentary: no rash Musculoskeletal: other (no edema) Psychiatric: cooperative - Lab 11/19/16 07:07 11/19/16 07:07 Most recent lab results Calcium 8.0 mg/dL (8.4-10.2) L 11/19/16 07:07
--- NOTE | 2016-11-19 13:41 | Progress Note ---
Assessment and Plan Assessment and plan: Assessment and Plan Assessment and plan: Kamila is a36 year old female with hx of Sickle cell presenting to the hosptial with complaint of chest pain and b/l lower ext pain with no associated cough or shortness of breath and on admission noted to have severe Anemia with TEODORO Sickle Cell Crisis * Supportive care, pain control, mvi, folic acid, Hematology consult, change fluids to D51/2NS Severe Anemia secondary to Sickle cell * 2 units PRBC GIVEN, additional 2 units ordered, check Retic count, Acute kidney injury possible vasomotor nephropathy * Nephrology input noted. continue hydration, follow pending labs Atypical chest pain- Likely demand ischemia * supportive care, monitor BP, low H/H precludes ASA. check lipid profile. Monitor cardiac enzyme Chronic lower ext DVT * Pain control * Severe anemia precludes use of anticoagulation * Follow with Hematology outpatient for close monitoring. Discussed with Dr Eddie Downs * Likely secondary to hemolysis. No evidence of abdominal dyscomfort. Will monitor. * U/S abdomen. HX OF SVC syndrome DVT/GI prophy * SCD AND H2 altagracia Total Time Spent with Patient (Minutes): 30 mon History Interval history: Doing better Hospitalist Physical - Constitutional Vitals: Temp Pulse Resp BP Pulse Ox 97.6 F 77 20 110/54 99 11/19/16 11:55 11/19/16 11:52 11/19/16 11:52 11/19/16 11:52 11/19/16 11:52 General appearance: Present: no acute distress, well-nourished - EENT Eyes: Present: PERRL, EOM intact ENT: hearing intact, clear oral mucosa, dentition normal, hearing decreased - Neck Neck: Present: supple, normal ROM - Respiratory Respiratory: bilateral: CTA - Cardiovascular Heart rate: 86 Rhythm: regular - Extremities Extremities: no ischemia, pulses intact, pulses symmetrical Peripheral Pulses: within normal limits - Abdominal General gastrointestinal: soft, non-tender, non-distended - Integumentary Integumentary: Present: clear, warm, dry - Psychiatric Psychiatric: appropriate mood/affect, intact judgment & insight, memory intact, cooperative - Neurologic Neurologic: CNII-XII intact, moves all extremities, gait normal - Allied Health Allied health notes reviewed: nursing Results - Labs CBC & Chem 7: 11/19/16 07:07 11/19/16 07:07 Labs: Laboratory Last Values WBC 16.4 K/mm3 (4.5-11.0) H 11/19/16 07:07 RBC 2.07 M/mm3 (3.65-5.03) L 11/19/16 07:07 Hgb 5.9 gm/dl (10.1-14.3) L* 11/19/16 07:07 Hct 17.9 % (30.3-42.9) L* 11/19/16 07:07 MCV 86 fl (79-97) 11/19/16 07:07 MCH 28 pg (28-32) 11/19/16 07:07 MCHC 33 % (30-34) 11/19/16 07:07 RDW 22.2 % (13.2-15.2) H 11/19/16 07:07 Plt Count 159 K/mm3 (140-440) 11/19/16 07:07 Lymph # [facility] Teacher 11/16/16 18:21 Add Manual Diff Complete 11/16/16 18:21 Total Counted 100 11/16/16 18:21 Seg Neuts % (Manual) 54.0 % (40.0-70.0) 11/16/16 18:21 Band Neutrophils % 20.0 % 11/16/16 18:21 Lymphocytes % (Manual) 18.0 % (13.4-35.0) 11/16/16 18:21 Reactive Lymphs % (Man) 0 % 11/16/16 18:21 Monocytes % (Manual) 8.0 % (0.0-7.3) H 11/16/16 18:21 Eosinophils % (Manual) 0 % (0.0-4.3) 11/16/16 18:21 Basophils % (Manual) 0 % (0.0-1.8) 11/16/16 18:21 Metamyelocytes % 0 % 11/16/16 18:21 Myelocytes % 0 % 11/16/16 18:21 Promyelocytes % 0 % 11/16/16 18:21 Blast Cells % 0 % 11/16/16 18:21 Nucleated RBC % 156.0 % (0.0-0.9) H 11/16/16 18:21 Seg Neutrophils # Man 1.1 K/mm3 (1.8-7.7) L 11/16/16 18:21 Band Neutrophils # 0.4 K/mm3 11/16/16 18:21 Lymphocytes # (Manual) 0.4 K/mm3 (1.2-5.4) L 11/16/16 18:21 Abs React Lymphs (Man) 0.0 K/mm3 11/16/16 18:21 Monocytes # (Manual) 0.2 K/mm3 (0.0-0.8) 11/16/16 18:21 Eosinophils # (Manual) 0.0 K/mm3 (0.0-0.4) 11/16/16 18:21 Basophils # (Manual) 0.0 K/mm3 (0.0-0.1) 11/16/16 18:21 Metamyelocytes # 0.0 K/mm3 11/16/16 18:21 Myelocytes # 0.0 K/mm3 11/16/16 18:21 Promyelocytes # 0.0 K/mm3 11/16/16 18:21 Blast Cells # 0.0 K/mm3 11/16/16 18:21 WBC Morphology Not Reportable 11/16/16 18:21 Hypersegmented Neuts Not Reportable 11/16/16 18:21 Hyposegmented Neuts Not Reportable 11/16/16 18:21 Hypogranular Neuts Not Reportable 11/16/16 18:21 Smudge Cells Not Reportable 11/16/16 18:21 Toxic Granulation Not Reportable 11/16/16 18:21 Toxic Vacuolation Not Reportable 11/16/16 18:21 Dohle Bodies Not Reportable 11/16/16 18:21 Pelger-Huet Anomaly Not Reportable 11/16/16 18:21 Maddi Rods Not Reportable 11/16/16 18:21 Platelet Estimate Consistent w auto 11/16/16 18:21 Clumped Platelets Not Reportable 11/16/16 18:21 Plt Clumps, EDTA Not Reportable 11/16/16 18:21 Large Platelets Not Reportable 11/16/16 18:21 Giant Platelets Not Reportable 11/16/16 18:21 Platelet Satelliting Not Reportable 11/16/16 18:21 Plt Morphology Comment Not Reportable 11/16/16 18:21 RBC Morphology Not Reportable 11/16/16 18:21 Dimorphic RBCs Not Reportable 11/16/16 18:21 Polychromasia 1+ 11/16/16 18:21 Hypochromasia 2+ 11/16/16 18:21 Poikilocytosis Not Reportable 11/16/16 18:21 Anisocytosis 2+ 11/16/16 18:21 Microcytosis Not Reportable 11/16/16 18:21 Macrocytosis Not Reportable 11/16/16 18:21 Spherocytes Not Reportable 11/16/16 18:21 Pappenheimer Bodies Not Reportable 11/16/16 18:21 Sickle Cells 2+ 11/16/16 18:21 Target Cells 2+ 11/16/16 18:21 Tear Drop Cells Not Reportable 11/16/16 18:21 Ovalocytes Not Reportable 11/16/16 18:21 Helmet Cells Not Reportable 11/16/16 18:21 [place] Bodies Not Reportable 11/16/16 18:21 [place] Rings Not Reportable 11/16/16 18:21 [place] Cells Not Reportable 11/16/16 18:21 Bite Cells Not Reportable 11/16/16 18:21 Crenated Cell Not Reportable 11/16/16 18:21 Elliptocytes Not Reportable 11/16/16 18:21 Acanthocytes (Spur) Not Reportable 11/16/16 18:21 Rouleaux Not Reportable 11/16/16 18:21 Hemoglobin C Crystals Not Reportable 11/16/16 18:21 Schistocytes Not Reportable 11/16/16 18:21 Malaria parasites Not Reportable 11/16/16 18:21 Percent Retic 2.19 % (0.78-2.58) 11/17/16 09:13 Hieu Bodies Not Reportable 11/16/16 18:21 Hem Pathologist Commnt No 11/16/16 18:21 PT 15.8 Sec. (12.2-14.9) H 11/16/16 18:21 INR 1.27 (0.87-1.13) H 11/16/16 18:21 Sodium 134 mmol/L (137-145) L 11/19/16 07:07 Potassium 4.2 mmol/L (3.6-5.0) 11/19/16 07:07 Chloride 98.1 mmol/L (98-107) 11/19/16 07:07 Carbon Dioxide 20 mmol/L (22-30) L 11/19/16 07:07 Anion Gap 20 mmol/L 11/19/16 07:07 BUN 52 mg/dL (7-17) H 11/19/16 07:07 Creatinine 1.3 mg/dL (0.7-1.2) H 11/19/16 07:07 Estimated GFR 56 ml/min 11/19/16 07:07 BUN/Creatinine Ratio 40.00 % 11/19/16 07:07 Glucose 98 mg/dL (65-100) 11/19/16 07:07 Calcium 8.0 mg/dL (8.4-10.2) L 11/19/16 07:07 Total Bilirubin 1.90 mg/dL (0.1-1.2) H 11/19/16 07:07 AST 76 units/L (5-40) H 11/19/16 07:07 ALT 19 units/L (7-56) 11/19/16 07:07 Alkaline Phosphatase 107 units/L (35-129) 11/19/16 07:07 Total Creatine Kinase 170 units/L (30-135) H 11/17/16 09:13 CK-MB (CK-2) 2.1 ng/mL (0.0-4.0) 11/17/16 09:13 CK-MB (CK-2) Rel Index 1.2 (0-4) 11/17/16 09:13 Troponin T < 0.010 ng/mL (0.00-0.029) 11/17/16 09:13 Total Protein 7.1 g/dL (6.3-8.2) 11/19/16 07:07 Albumin 3.5 g/dL (3.9-5) L 11/19/16 07:07 Albumin/Globulin Ratio 1.0 % 11/19/16 07:07 Hepatitis A IgM Ab Non-reactive (NonReactive) 11/17/16 09:13 Hep Bs Antigen Non-reactive (Negative) 11/17/16 09:13 Hep B Core IgM Ab Non-reactive (NonReactive) 11/17/16 09:13 Hepatitis C Antibody Non-reactive (NonReactive) 11/17/16 09:13 Blood Type O POSITIVE 11/17/16 00:14 Antibody Screen Negative 11/17/16 00:14 Crossmatch See Detail 11/17/16 00:14
[2016-11-19] MEDS ORDERED: NACL 0.9% 500 ML 500 ML IV ONE (13:42)
[2016-11-19] MEDS: RESTORIL PO PRN (21:31)
[2016-11-20] MEDS: DILAUDID IV PRN ×7 (01:11→22:32)
[2016-11-20] MEDS: DOLOPHINE PO SCH ×3 (06:13→21:36)
[2016-11-20] MEDS: D5/0.45NS 1,000 ML IV SCH ×2 (06:14→18:14)
[2016-11-20] MEDS ORDERED: NACL 0.9% 500 ML 500 ML IV ONE (10:36)
--- NOTE | 2016-11-20 10:48 | Progress Note ---
Assessment and Plan Assessment and Plan Assessment and plan: Kamila is a36 year old female with hx of Sickle cell presenting to the hosptial with complaint of chest pain and b/l lower ext pain with no associated cough or shortness of breath and on admission noted to have severe Anemia with TEODORO Sickle Cell Crisis * Supportive care, pain control, mvi, folic acid, Hematology consult, change fluids to D51/2NS Severe Anemia secondary to Sickle cell * 2 units PRBC GIVEN, additional 2 units ordered, check Retic count, 2 units of PRBC not transfused yesterday. Acute kidney injury possible vasomotor nephropathy * Nephrology input noted. continue hydration, follow pending labs Atypical chest pain- Likely demand ischemia * supportive care, monitor BP, low H/H precludes ASA. check lipid profile. Monitor cardiac enzyme Chronic lower ext DVT * Pain control * Severe anemia precludes use of anticoagulation * Follow with Hematology outpatient for close monitoring. Discussed with Dr Morgan Hyperbilirubenmia * Likely secondary to hemolysis. No evidence of abdominal dyscomfort. Will monitor. * U/S abdomen. HX OF SVC syndrome DVT/GI prophy * SCD AND H2 altagracia Subjective Date of service: 11/20/16 Principal diagnosis: Sickle cell crisis. Interval history: [facility] Objective - Constitutional Vitals: Vital Signs - 12hr 11/19/16 11/20/16 11/20/16 23:00 01:00 01:43 Temperature 98.2 F Pulse Rate 93 H 88 Respiratory 20 Rate Blood Pressure 115/45 O2 Sat by Pulse 86 Oximetry 11/20/16 11/20/16 05:46 07:51 Temperature 98.8 F Pulse Rate 94 H 86 Respiratory 20 20 Rate Blood Pressure 119/62 98/38 O2 Sat by Pulse 87 97 Oximetry General appearance: Present: no acute distress, well-nourished - EENT Eyes: PERRL, EOM intact ENT: hearing intact, clear oral mucosa Ears: bilateral: normal - Neck Neck: supple, normal ROM - Respiratory Respiratory effort: normal Respiratory: bilateral: CTA - Breasts Breasts: normal - Cardiovascular Rhythm: regular Heart Sounds: Present: S1 & S2. Absent: gallop, rub Extremities: pulses intact, No edema, normal color, Full ROM - Gastrointestinal General gastrointestinal: Present: soft, non-tender, non-distended, normal bowel sounds - Genitourinary Female genitourinary: normal - Integumentary Integumentary: clear, warm, dry - Musculoskeletal Musculoskeletal: 1, strength equal bilaterally - Neurologic Neurologic: moves all extremities - Psychiatric Psychiatric: memory intact, appropriate mood/affect, intact judgment & insight - Allied health notes Allied health notes reviewed: nursing, case management - Labs CBC & Chem 7: 11/19/16 07:07 11/19/16 07:07 Labs: Abnormal lab results 11/17/16 11/17/16 Range/Units 00:14 00:30 Complement C3 78 L (90-180) mg/dL Crossmatch See Detail
[2016-11-20] MEDS: FOLVITE PO SCH (11:07)
--- NOTE | 2016-11-20 12:22 | Progress Note ---
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 Interval history: Patient w/o complaint today. Objective - Vital Signs Vital signs: Vital Signs - 12hr 11/20/16 11/20/16 11/20/16 01:00 01:43 05:46 Temperature 98.2 F 98.8 F Pulse Rate 88 94 H Respiratory 20 20 Rate Blood Pressure 115/45 119/62 O2 Sat by Pulse 86 87 Oximetry 11/20/16 11/20/16 07:00 07:51 Temperature Pulse Rate 88 86 Respiratory 20 Rate Blood Pressure 98/38 O2 Sat by Pulse 97 Oximetry - General Appearance General appearance: well-developed, well-nourished EENT: ATNC Respiratory: Present: Clear to Ascultation Cardiology: regular, S1S2 Gastrointestinal: normal, no tenderness, no distended Integumentary: no rash Neurologic: alert and oriented x3 Musculoskeletal: other (no edema) Psychiatric: cooperative - Lab 11/19/16 07:07 11/19/16 07:07 Most recent lab results Calcium 8.0 mg/dL (8.4-10.2) L 11/19/16 07:07
[2016-11-20 13:02] LABS: Reticulocyte % 16.36 % (0.78-2.58)
[2016-11-20] MEDS: RESTORIL PO PRN (21:35)
[2016-11-21] MEDS: DILAUDID IV PRN ×7 (01:43→22:18)
[2016-11-21] MEDS: D5/0.45NS 1,000 ML IV SCH ×2 (04:58→16:04)
[2016-11-21] MEDS: DOLOPHINE PO SCH ×3 (04:59→21:17)
[2016-11-21 07:21] LABS: Alanine Aminotransferase 20 units/L (7-56); Albumin 3.3 g/dL (3.9-5); Albumin/Globulin Ratio 0.9 %; Alkaline Phosphatase 103 units/L (35-129); Anion Gap 23 mmol/L; Blood Urea Nitrogen 26 mg/dL (7-17); Calcium 8.1 mg/dL (8.4-10.2); Carbon Dioxide 17 mmol/L (22-30); Chloride 100.9 mmol/L (98-107); Glucose 85 mg/dL (65-100); Potassium 4.4 mmol/L (3.6-5.0); Sodium 136 mmol/L (137-145); Total Protein 6.9 g/dL (6.3-8.2)
[2016-11-21 08:30] LABS: Hematocrit 22.3 % (30.3-42.9); Hemoglobin 7.3 gm/dl (10.1-14.3); Mean Corpuscular HGB Conc 33 % (30-34); Mean Corpuscular Hemoglobin 29 pg (28-32); Mean Corpuscular Volume 88 fl (79-97); Platelet Count 102 K/mm3 (140-440); Red Blood Count 2.53 M/mm3 (3.65-5.03); Reticulocyte % 15.28 % (0.78-2.58)
[2016-11-21 08:34] LABS: Red Cell Distribution Width 21.2 % (13.2-15.2)
[2016-11-21 09:40] LABS: Anisocytosis 3+; Basophils % (Manual) 0 % (0.0-1.8); Blastocytes % (Manual) 0 %; Hypochromasia 1+; Macrocytosis 1+; Polychromasia 1+; Sickle Cells 1+; Target Cells 1+
[2016-11-21 09:41] LABS: Diff Status Complete; Platelet Estimate Consistent w Auto
[2016-11-21 10:01] LABS: White Blood Count 37.7 K/mm3 (4.5-11.0)
[2016-11-21] MEDS: FOLVITE PO SCH (11:32)
--- NOTE | 2016-11-21 15:37 | Progress Note ---
Assessment and Plan Assessment and Plan Assessment and plan: Kamila is a36 year old female with hx of Sickle cell presenting to the hosptial with complaint of chest pain and b/l lower ext pain with no associated cough or shortness of breath and on admission noted to have severe Anemia with TEODORO Sickle Cell Crisis * Retic count still very high around 15.Supportive care, pain control, mvi, folic acid, Hematology consult, change fluids to D51/2NS Severe Anemia secondary to Sickle cell * 2 units PRBC GIVEN, additional 2 units ordered, check Retic count, 2 units of PRBC not transfused yesterday. Acute kidney injury possible vasomotor nephropathy * Resolved Atypical chest pain- Likely demand ischemia * supportive care, monitor BP, low H/H precludes ASA. check lipid profile. Monitor cardiac enzyme Chronic lower ext DVT * Pain control * Severe anemia precludes use of anticoagulation * Follow with Hematology outpatient for close monitoring. Discussed with Dr Eddie Downs * Likely secondary to hemolysis. No evidence of abdominal dyscomfort. Will monitor. * U/S abdomen. HX OF SVC syndrome DVT/GI prophy * SCD AND H2 altagracia Subjective Date of service: 11/21/16 Principal diagnosis: Sickle cell crisis. Interval history: Doing better Still in severe pain Objective - Constitutional Vitals: Vital Signs - 12hr 11/21/16 11/21/16 11/21/16 04:25 08:42 12:07 Temperature 98.3 F 98.9 F Pulse Rate 78 68 69 Respiratory 22 20 20 Rate Blood Pressure 108/45 121/59 Blood Pressure 109/61 [Left] O2 Sat by Pulse 93 100 100 Oximetry 11/21/16 15:26 Temperature Pulse Rate 78 Respiratory Rate Blood Pressure Blood Pressure [Left] O2 Sat by Pulse Oximetry General appearance: Present: no acute distress, well-nourished - EENT Eyes: PERRL, EOM intact ENT: hearing intact, clear oral mucosa Ears: bilateral: normal - Neck Neck: supple, normal ROM - Respiratory Respiratory effort: normal Respiratory: bilateral: CTA - Breasts Breasts: normal - Cardiovascular Rhythm: regular Heart Sounds: Present: S1 & S2. Absent: gallop, rub Extremities: pulses intact, No edema, normal color, Full ROM - Gastrointestinal General gastrointestinal: Present: soft, non-tender, non-distended, normal bowel sounds - Genitourinary Female genitourinary: normal - Integumentary Integumentary: clear, warm, dry - Musculoskeletal Musculoskeletal: 1, strength equal bilaterally - Neurologic Neurologic: moves all extremities - Psychiatric Psychiatric: memory intact, appropriate mood/affect, intact judgment & insight - Labs CBC & Chem 7: 11/21/16 08:09 11/21/16 05:58 Labs: Abnormal lab results 11/20/16 11/21/16 11/21/16 Range/Units 11:02 05:58 08:09 WBC 37.7 H (4.5-11.0) K/mm3 RBC 2.53 L (3.65-5.03) M/mm3 Hgb 7.3 L (10.1-14.3) gm/dl Hct 22.3 L (30.3-42.9) % RDW 21.2 H (13.2-15.2) % Plt Count 102 L (140-440) K/mm3 Nucleated RBC % 168.0 H (0.0-0.9) % Seg Neutrophils # Man 0.0 L (1.8-7.7) K/mm3 Lymphocytes # (Manual) 0.0 L (1.2-5.4) K/mm3 Percent Retic 15.28 H (0.78-2.58) % Sodium 136 L (137-145) mmol/L Carbon Dioxide 17 L (22-30) mmol/L BUN 26 H (7-17) mg/dL Calcium 8.1 L (8.4-10.2) mg/dL Total Bilirubin 1.60 H (0.1-1.2) mg/dL AST 70 H (5-40) units/L Albumin 3.3 L (3.9-5) g/dL Crossmatch See Detail
[2016-11-21] MEDS ORDERED: D5NS 1,000 ML IV SCH (16:00)
[2016-11-21] MEDS: ZOSYN/NS 4.5GM/100ML 4.5 GM/100 ML VIAL IV SCH ×2 (16:28→21:16)
[2016-11-21] MEDS: RESTORIL PO PRN (23:53)
[2016-11-22] MEDS: D5/0.45NS 1,000 ML IV SCH ×2 (02:33→11:44)
[2016-11-22] MEDS: ZOSYN/NS 4.5GM/100ML 4.5 GM/100 ML VIAL IV SCH ×2 (05:14→14:36)
[2016-11-22] MEDS: DILAUDID IV PRN ×2 (05:20→09:48)
[2016-11-22] MEDS: DOLOPHINE PO SCH ×2 (07:11→14:34)
[2016-11-22 07:43] LABS: Alanine Aminotransferase 21 units/L (7-56); Albumin 3.1 g/dL (3.9-5); Albumin/Globulin Ratio 0.9 %; Alkaline Phosphatase 100 units/L (35-129); Anion Gap 16 mmol/L; BUN/Creatinine Ratio 23.75; Blood Urea Nitrogen 19 mg/dL (7-17); Calcium 7.6 mg/dL (8.4-10.2); Carbon Dioxide 23 mmol/L (22-30); Chloride 103.1 mmol/L (98-107); Glucose 77 mg/dL (65-100); Sodium 138 mmol/L (137-145); Total Protein 6.5 g/dL (6.3-8.2)
--- NOTE | 2016-11-22 07:49 | Progress Note ---
Assessment and Plan Assessment and plan: Kamila is a36 year old female with hx of Sickle cell presenting to the hosptial with complaint of chest pain and b/l lower ext pain with no associated cough or shortness of breath and on admission noted to have severe Anemia with TEODORO Leukocytosis * possible SIRS, could be stress induced. Cont Zosyn. Monitor for resolution, Await HEME input Sickle Cell Crisis * Retic count still very high around 15. Supportive care, pain control, mvi, folic acid, Hematology consult, change fluids to D51/2NS Severe Anemia secondary to Sickle cell * 6 units PRBC GIVEN, Acute kidney injury secondary to prerenal azotemia due to hypoperfusion * Resolved Atypical chest pain- Likely demand ischemia * supportive care, monitor BP, low H/H precludes ASA. check lipid profile. Monitor cardiac enzyme Chronic lower ext DVT * Pain control * Severe anemia precludes use of anticoagulation * Follow with Hematology outpatient for close monitoring. Discussed with Dr Morgan Hyperbilirubenmia * Likely secondary to hemolysis. No evidence of abdominal dyscomfort. Will monitor. * U/S abdomen-nonspecific perihepatic fluids HX OF SVC syndrome DVT/GI prophy * SCD AND H2 altagracia Hospitalist Physical - Constitutional Vitals: Temp Pulse Resp BP Pulse Ox 98.6 F 68 20 104/45 91 11/22/16 01:39 11/22/16 01:40 11/22/16 07:11 11/22/16 01:35 11/22/16 01:40 General appearance: Present: no acute distress, well-nourished Results - Labs CBC & Chem 7: 11/21/16 08:09 11/22/16 06:25 Labs: Laboratory Last Values WBC 37.7 K/mm3 (4.5-11.0) H 11/21/16 08:09 RBC 2.53 M/mm3 (3.65-5.03) L 11/21/16 08:09 Hgb 7.3 gm/dl (10.1-14.3) L 11/21/16 08:09 Hct 22.3 % (30.3-42.9) L 11/21/16 08:09 MCV 88 fl (79-97) 11/21/16 08:09 MCH 29 pg (28-32) 11/21/16 08:09 MCHC 33 % (30-34) 11/21/16 08:09 RDW 21.2 % (13.2-15.2) H 11/21/16 08:09 Plt Count 102 K/mm3 (140-440) L 11/21/16 08:09 Lymph # Diet Counselor 11/16/16 18:21 Add Manual Diff Complete 11/21/16 08:09 Total Counted 100 11/21/16 08:09 Seg Neuts % (Manual) 65.0 % (40.0-70.0) 11/21/16 08:09 Band Neutrophils % 4.0 % 11/21/16 08:09 Lymphocytes % (Manual) 21.0 % (13.4-35.0) 11/21/16 08:09 Reactive Lymphs % (Man) 0 % 11/21/16 08:09 Monocytes % (Manual) 7.0 % (0.0-7.3) 11/21/16 08:09 Eosinophils % (Manual) 3.0 % (0.0-4.3) 11/21/16 08:09 Basophils % (Manual) 0 % (0.0-1.8) 11/21/16 08:09 Metamyelocytes % 0 % 11/21/16 08:09 Myelocytes % 0 % 11/21/16 08:09 Promyelocytes % 0 % 11/21/16 08:09 Blast Cells % 0 % 11/21/16 08:09 Nucleated RBC % 168.0 % (0.0-0.9) H 11/21/16 08:09 Seg Neutrophils # Man 0.0 K/mm3 (1.8-7.7) L 11/21/16 08:09 Band Neutrophils # 0.0 K/mm3 11/21/16 08:09 Lymphocytes # (Manual) 0.0 K/mm3 (1.2-5.4) L 11/21/16 08:09 Abs React Lymphs (Man) 0.0 K/mm3 11/21/16 08:09 Monocytes # (Manual) 0.0 K/mm3 (0.0-0.8) 11/21/16 08:09 Eosinophils # (Manual) 0.0 K/mm3 (0.0-0.4) 11/21/16 08:09 Basophils # (Manual) 0.0 K/mm3 (0.0-0.1) 11/21/16 08:09 Metamyelocytes # 0.0 K/mm3 11/21/16 08:09 Myelocytes # 0.0 K/mm3 11/21/16 08:09 Promyelocytes # 0.0 K/mm3 11/21/16 08:09 Blast Cells # 0.0 K/mm3 11/21/16 08:09 WBC Morphology Not Reportable 11/21/16 08:09 Hypersegmented Neuts Not Reportable 11/21/16 08:09 Hyposegmented Neuts Not Reportable 11/21/16 08:09 Hypogranular Neuts Not Reportable 11/21/16 08:09 Smudge Cells Not Reportable 11/21/16 08:09 Toxic Granulation Not Reportable 11/21/16 08:09 Toxic Vacuolation Not Reportable 11/21/16 08:09 Dohle Bodies Not Reportable 11/21/16 08:09 Pelger-Huet Anomaly Not Reportable 11/21/16 08:09 Maddi Rods Not Reportable 11/21/16 08:09 Platelet Estimate Consistent w auto 11/21/16 08:09 Clumped Platelets Not Reportable 11/21/16 08:09 Plt Clumps, EDTA Not Reportable 11/21/16 08:09 Large Platelets Not Reportable 11/21/16 08:09 Giant Platelets Not Reportable 11/21/16 08:09 Platelet Satelliting Not Reportable 11/21/16 08:09 Plt Morphology Comment Not Reportable 11/21/16 08:09 RBC Morphology Not Reportable 11/21/16 08:09 Dimorphic RBCs Not Reportable 11/21/16 08:09 Polychromasia 1+ 11/21/16 08:09 Hypochromasia 1+ 11/21/16 08:09 Poikilocytosis Not Reportable 11/21/16 08:09 Anisocytosis 3+ 11/21/16 08:09 Microcytosis Not Reportable 11/21/16 08:09 Macrocytosis 1+ 11/21/16 08:09 Spherocytes Not Reportable 11/21/16 08:09 Pappenheimer Bodies Not Reportable 11/21/16 08:09 Sickle Cells 1+ 11/21/16 08:09 Target Cells 1+ 11/21/16 08:09 Tear Drop Cells Not Reportable 11/21/16 08:09 Ovalocytes Not Reportable 11/21/16 08:09 Helmet Cells Not Reportable 11/21/16 08:09 Stevenson-Strum Bodies Not Reportable 11/21/16 08:09 Sloughhouse Rings Not Reportable 11/21/16 08:09 Millry Cells Not Reportable 11/21/16 08:09 Bite Cells Not Reportable 11/21/16 08:09 Crenated Cell Not Reportable 11/21/16 08:09 Elliptocytes Not Reportable 11/21/16 08:09 Acanthocytes (Spur) Not Reportable 11/21/16 08:09 Rouleaux Not Reportable 11/21/16 08:09 Hemoglobin C Crystals Not Reportable 11/21/16 08:09 Schistocytes Not Reportable 11/21/16 08:09 Malaria parasites Not Reportable 11/21/16 08:09 Percent Retic 15.28 % (0.78-2.58) H 11/21/16 08:09 Hieu Bodies Not Reportable 11/21/16 08:09 Hem Pathologist Commnt No 11/21/16 08:09 PT 15.8 Sec. (12.2-14.9) H 11/16/16 18:21 INR 1.27 (0.87-1.13) H 11/16/16 18:21 Sodium 138 mmol/L (137-145) 11/22/16 06:25 Potassium 4.0 mmol/L (3.6-5.0) 11/22/16 06:25 Chloride 103.1 mmol/L (98-107) 11/22/16 06:25 Carbon Dioxide 23 mmol/L (22-30) 11/22/16 06:25 Anion Gap 16 mmol/L 11/22/16 06:25 BUN 19 mg/dL (7-17) H 11/22/16 06:25 Creatinine 0.8 mg/dL (0.7-1.2) 11/22/16 06:25 Estimated GFR > 60 ml/min 11/22/16 06:25 BUN/Creatinine Ratio 23.75 % 11/22/16 06:25 Glucose 77 mg/dL (65-100) 11/22/16 06:25 Calcium 7.6 mg/dL (8.4-10.2) L 11/22/16 06:25 Total Bilirubin 1.40 mg/dL (0.1-1.2) H 11/22/16 06:25 AST 65 units/L (5-40) H 11/22/16 06:25 ALT 21 units/L (7-56) 11/22/16 06:25 Alkaline Phosphatase 100 units/L (35-129) 11/22/16 06:25 Total Creatine Kinase 170 units/L (30-135) H 11/17/16 09:13 CK-MB (CK-2) 2.1 ng/mL (0.0-4.0) 11/17/16 09:13 CK-MB (CK-2) Rel Index 1.2 (0-4) 11/17/16 09:13 Troponin T < 0.010 ng/mL (0.00-0.029) 11/17/16 09:13 Total Protein 6.5 g/dL (6.3-8.2) 11/22/16 06:25 Albumin 3.1 g/dL (3.9-5) L 11/22/16 06:25 Albumin/Globulin Ratio 0.9 % 11/22/16 06:25 Complement C3 78 mg/dL (90-180) L 11/17/16 00:30 Complement C4 35 mg/dL (16-47) 11/17/16 00:30 Hepatitis A IgM Ab Non-reactive (NonReactive) 11/17/16 09:13 Hep Bs Antigen Non-reactive (Negative) 11/17/16 09:13 Hep B Core IgM Ab Non-reactive (NonReactive) 11/17/16 09:13 Hepatitis C Antibody Non-reactive (NonReactive) 11/17/16 09:13 Blood Type O POSITIVE 11/20/16 11:02 Antibody Screen Negative 11/20/16 11:02 Crossmatch See Detail 11/20/16 11:02
[2016-11-22 07:52] VITALS: BP 109/52
[2016-11-22 09:12] LABS: Hematocrit 21.6 % (30.3-42.9); Hemoglobin 6.9 gm/dl (10.1-14.3); Mean Corpuscular HGB Conc 32 % (30-34); Mean Corpuscular Hemoglobin 29 pg (28-32); Mean Corpuscular Volume 89 fl (79-97); Platelet Count 100 K/mm3 (140-440); Red Blood Count 2.42 M/mm3 (3.65-5.03)
[2016-11-22 09:37] LABS: Red Cell Distribution Width 21.3 % (13.2-15.2)
[2016-11-22] MEDS: FOLVITE PO SCH (09:48)
[2016-11-22 10:43] LABS: Blastocytes % (Manual) 0 %
[2016-11-22 10:45] LABS: Anisocytosis 3+; Diff Status Complete; Hypochromasia 1+; Macrocytosis 1+; Platelet Estimate Consistent w Auto; Polychromasia 1+; Sickle Cells 1+; Target Cells 1+; White Blood Count 10.9 K/mm3 (4.5-11.0)
--- NOTE | 2016-11-22 11:20 | Discharge Summary ---
Providers - Providers Date of Admission: 11/16/16 22:22 Attending physician: ARABELLA ZHENG MD 11/17/16 06:33 Consult to Physician [CONS] Routine Consulting Provider: ZEINAB BECKHAM Reason For Exam: SICKLE CELL CRISIS Place consult to:: ZEINAB BECKHAM Notified:: Vania THOMPSON Phone number called:: Was contact made?: Yes If yes, spoke with:: [facility] Time called:: 08:09 11/17/16 06:46 Consult to Physician [CONS] Routine Consulting Provider: SHITAL LE Reason For Exam: RENAL INSUFFICIENCY Place consult to:: SHITAL LE Notified:: Vania THOMPSON Was contact made?: Yes If yes, spoke with:: Dr. Le Time called:: 08:26 Primary care physician: ZEINAB BECKHAM Hospitalization Reason for admission: sickle cell crisis Condition: Stable Hospital course: Kamila is a36 year old female with hx of Sickle cell presenting to the hosptial with complaint of chest pain and b/l lower ext pain with no associated cough or shortness of breath and on admission noted to have severe Anemia with TEODORO SIRS * Patient was treated empirically with Zosyn but this resolved by itself likely stress-induced. No fever was noted. I did discuss with hematology and will follow the patient in the office. Sickle Cell Crisis * Patient on presentation was noted to have a hemoglobin of less than 3 she was transfused 6 units packed red blood cells with improvement sickle cell crisis. 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 I did recommend that she will benefit from following with a pain physician. Severe Anemia secondary to Sickle cell * 6 units PRBC GIVEN, * We did discuss with hematology oncologist who guided therapy and will follow the patient in the office. Hemoglobin came up to 6.9 prior to discharge. Acute kidney injury secondary to prerenal azotemia due to hypoperfusion * Resolved Atypical chest pain- Likely demand ischemia * supportive care, records as well remarkable. This was likely demand ischemia. Aspirin was not used due to anemia. Chronic lower ext DVT * Pain control * Severe anemia precludes use of anticoagulation * Follow with Hematology outpatient for close monitoring. Discussed with Dr Beckham Hyperbilirubenmia * Likely secondary to hemolysis. No evidence of abdominal dyscomfort. Will monitor. * U/S abdomen-nonspecific perihepatic fluids HX OF SVC syndrome Disposition: DC-01 TO HOME OR SELFCARE Time spent for discharge: 35 mins Core Measure Documentation - Palliative Care Palliative Care/ Comfort Measures: Not Applicable - Core Measures Any of the following diagnoses?: none - VTE Discharge Requirements Deep Vein Thrombosis/Pulmonary Embolism Present on Admission: No Exam - Physical Exam Narrative exam: VITAL SIGNS: Reviewed. GENERAL: The patient appeared well nourished and normally developed with generalized body pain. Vital signs as documented. HEAD: No signs of head trauma. EYES: Pupils are equal. Extraocular motions intact. EARS: Hearing grossly intact. MOUTH: Oropharynx is normal. NECK: No adenopathy, no JVD. CHEST: Chest with clear breath sounds bilaterally. No wheezes, rales, or rhonchi. CARDIAC: Regular rate and rhythm. S1 and S2, without murmurs, gallops, or rubs. VASCULAR: No Edema. Peripheral pulses normal and equal in all extremities. ABDOMEN: Soft, without detectable tenderness. No sign of distention. No rebound or guarding, and no masses palpated. Bowel Sounds normal. MUSCULOSKELETAL: Good range of motion of all major joints. Extremities without clubbing, cyanosis or edema. NEUROLOGIC EXAM: Alert and oriented x 3. No focal sensory or strength deficits. Speech normal. Follows commands. PSYCHIATRIC: Mood normal. SKIN: No rash or lesions. - Constitutional Vitals: Temp Pulse Resp BP Pulse Ox 98.9 F 73 14 109/52 100 11/22/16 07:50 11/22/16 07:50 11/22/16 07:50 11/22/16 07:50 11/22/16 07:50 Plan Activity: advance as tolerated, fall precautions Diet: low fat Additional Instructions: recommend repeat HEMOGLOBIN IN 3 DAYS WITH PCP Follow up with: ZEINAB BECKHAM DO [Primary Care Provider] - 3-5 Days Prescriptions: Folic Acid [Folvite] 1 mg PO DAILY #30 tablet
[2016-11-22] MEDS ORDERED: NON-FORMULARY (Oxycodone Hcl/Acetaminophen [Percocet 7.5/325 Mg] 1 EACH) PO PRN (12:28)
[2016-11-22] MEDS ORDERED: ROXICODONE PO PRN (12:51)
[2016-11-22] MEDS ORDERED: PERCOCET 5/325 PO PRN (12:51)
[2016-11-22] MEDS ORDERED: FLUSH HEPARIN IV ONE (12:56)
[2016-11-22] MEDS ORDERED: DILAUDID IV ONE (13:14)
[2016-11-22] MEDS ORDERED: DILAUDID IV NR (14:00)
== END 2016-11-22 18:00 | disposition home health service (06) | DRG 682 ==
LOC: ED 05:24 → 4A 22:22 → 3A 11-21 23:16
PROVIDERS: ADMIT Internal Medicine; ATTEND Internal Medicine
PROC: 30233N1 Transfusion of Nonautologous Red Blood Cells into Peripheral Vein, Percutaneous Approach (ICD-10-PCS; principal; 2016-11-17)
DX: N17.9 Acute kidney failure, unspecified (principal); D57.00 Hb-SS disease with crisis, unspecified; R65.10 Systemic inflammatory response syndrome (SIRS) of non-infectious origin without acute organ dysfunction; F11.20 Opioid dependence, uncomplicated; I24.8 Other forms of acute ischemic heart disease; I82.509 Chronic embolism and thrombosis of unspecified deep veins of unspecified lower extremity; I87.1 Compression of vein; D64.9 Anemia, unspecified; E80.6 Other disorders of bilirubin metabolism; I10 Essential (primary) hypertension; Z88.5 Allergy status to narcotic agent; Z86.711 Personal history of pulmonary embolism; Z98.51 Tubal ligation status; Z90.49 Acquired absence of other specified parts of digestive tract
CPT/HCPCS: 36415; 71010; 76705; 76770; 80048; 80053; 80074; 82550; 82553; 84484; 85007; 85014; 85018; 85025; 85027; 85045; 85610; 85660; 86160; 86850; 86900; 86901; 86902; 86922; 90686; 93306; 93970; 96374; 96375; 96376; 99406; J1170; J1200; J1642; J2405; J2543; J7030; J7040; P9040

== ENCOUNTER 2016-12-08 14:40 | Outpatient (CLI) | payer MEDICARE ==
--- NOTE | 2016-12-08 15:40 | XRay Report ---
ABDOMEN RADIOGRAPHS INDICATION: IVC filter position. COMPARISON: 06/27/2016 FINDINGS: Frontal abdominal radiographs demonstrate a new long left groin catheter with its tip likely in the intrahepatic IVC superiorly. Stable IVC filter projecting about L2-L3 on the right and adjacent cholecystectomy clips. Stable right hip orthopedic compression screw, small left hemipelvic surgical clips and chronic left hip deformity dislocation. Nonobstructive bowel gas pattern. Possible scarring at the right lung base. Approximately 9 x 4.5 cm calcified spleen again noted. CONCLUSION: New long left groin vascular catheter tip in the IVC with stable IVC filter and various other incidental findings, as above. Thank you for the opportunity to participate in this patient's care.
== END 2016-12-08 14:41 | disposition home or self-care (01) ==
LOC: XRAY 14:40
PROVIDERS: ATTEND Internal Medicine Hematology & Oncology
DX: J98.4 Other disorders of lung (principal); T84.021A Dislocation of internal left hip prosthesis, initial encounter; Z96.643 Presence of artificial hip joint, bilateral; Z90.49 Acquired absence of other specified parts of digestive tract
CPT/HCPCS: 74000

== ENCOUNTER 2017-03-24 15:29 | Emergency (ER) | payer MEDICARE ==
[2017-03-24 19:24] LABS: Bacteria,Urine 1+ /HPF (Negative); Bilirubin,Urine NEG (Negative); Blood,Urine SM (Negative); Color,Urine Yellow (Yellow); Mucus,Urine FEW /HPF; Nitrite,Urine NEG (Negative); Urobilinogen,Urine < 2.0 mg/dL (<2.0)
--- NOTE | 2017-03-25 00:57 | Emergency Department Report ---
ED General Adult HPI - General Chief complaint: Extremity Problem,Nontraumatic Stated complaint: SICKLE CELL PAIN Time Seen by Provider: 03/25/17 00:35 Source: patient Mode of arrival: Wheelchair Limitations: No Limitations - History of Present Illness Initial comments: Patient is a 36-year-old M[place] female with a past medical history history of sickle cell disease as well as chronic DVT in the left lower extremity hypertension who is presenting with leg swelling. Patient states that her bilateral legs have edema. This happens periodically. She has been told this is secondary to poor circulation. Patient states she last week had a mild cough that is productive of clear sputum and fever but this has since almost mostly subsided. Patient denies any pleuritic chest pain nausea vomiting diarrhea exertional chest pain exertional shortness of breath at this time. Patient states her legs are aching and a 6 out of 10 in severity. Patient states in the past when this is occurred she has had to take Lasix for approximately a week before the leg swelling dissipates Onset/Timin -: week(s) Severity scale (0 -10): 6 - Related Data Home Medications Medication Instructions Recorded Confirmed Last Taken Methadone [Dolophine] 20 mg PO Q8H 03/27/15 11/16/16 07/21/16 Previous Rx's Medication Instructions Recorded Last Taken Type Oxycodone HCl/Acetaminophen 1 each PO Q6HR PRN #15 tablet 10/09/14 05/03/15 Rx [Percocet 7.5/325 mg] Folic Acid [Folvite] 1 mg PO DAILY #30 tablet 11/22/16 Unknown Rx Doxycycline [Vibramycin CAP] 100 mg PO Q12HR #14 capsule 03/25/17 Unknown Rx Furosemide [Lasix] 20 mg PO QDAY #7 tablet 03/25/17 Unknown Rx Allergies Allergy/AdvReac Type Severity Reaction Status Date / Time ketorolac tromethamine Allergy Hives Verified 06/27/14 09:21 [From Toradol] metoclopramide HCl Allergy Unknown Verified 06/27/14 09:21 [From Reglan] morphine Allergy Hives Verified 06/27/14 09:21 propoxyphene napsylate Allergy Hives Verified 06/27/14 09:21 [From Darvocet-N 100] ceftriaxone sodium AdvReac Unknown Verified 06/27/14 09:21 [From Rocephin] heparin AdvReac Bleeding Verified 06/27/14 09:21 ED Review of Systems ROS: Stated complaint: SICKLE CELL PAIN Other details as noted in HPI Comment: All other systems reviewed and negative Musculoskeletal: other (edema). denies: joint swelling ED Past Medical Hx - Past Medical History Hx Hypertension: Yes Hx Congestive Heart Failure: No Hx Diabetes: No Hx Deep Vein Thrombosis: Yes Hx Pulmonary Embolism: Yes Hx Sickle Cell Disease: Yes Hx Asthma: No Hx COPD: No Hx HIV: No Additional medical history: Avascular necrosis of bilateral hips and bilateral shoulders, SVT - Surgical History Hx Cholecystectomy: Yes Additional Surgical History: csection x2; tubal ligation; bilateral hip; powerports; abcess removed from throat. 7 ports total the last one being placed in April of this year. The others had to be removed secondary toinfection.IVC filterPort Placed to Right groin. - Social History Smoking Status: Never Smoker Substance Use Type: None - Medications Home Medications: Home Medications Medication Instructions Recorded Confirmed Last Taken Type Oxycodone HCl/Acetaminophen 1 each PO Q6HR PRN #15 tablet 10/09/14 11/16/16 Rx [Percocet 7.5/325 mg] Methadone [Dolophine] 20 mg PO Q8H 03/27/15 11/16/16 07/21/16 History Folic Acid [Folvite] 1 mg PO DAILY #30 tablet 11/22/16 Unknown Rx Doxycycline [Vibramycin CAP] 100 mg PO Q12HR #14 capsule 03/25/17 Unknown Rx Furosemide [Lasix] 20 mg PO QDAY #7 tablet 03/25/17 Unknown Rx ED Physical Exam - General Limitations: No Limitations General appearance: alert, in no apparent distress - Head Head exam: Present: atraumatic, normocephalic - Eye Eye exam: Present: normal appearance - ENT ENT exam: Present: mucous membranes moist - Neck Neck exam: Present: normal inspection - Respiratory Respiratory exam: Present: normal lung sounds bilaterally. Absent: respiratory distress - Cardiovascular Cardiovascular Exam: Present: regular rate, normal rhythm. Absent: systolic murmur, diastolic murmur, rubs, gallop - GI/Abdominal GI/Abdominal exam: Present: soft, normal bowel sounds - Extremities Exam Extremities exam: Present: normal inspection, other (patient has 2+ edema to the upper calf). Absent: tenderness - Back Exam Back exam: Present: normal inspection - Neurological Exam Neurological exam: Present: alert, oriented X3 - Psychiatric Psychiatric exam: Present: normal affect, normal mood - Skin Skin exam: Present: warm, dry, intact, normal color. Absent: rash ED Course Vital Signs 03/24/17 03/25/17 03/25/17 17:47 01:31 02:31 Temperature 98.9 F Pulse Rate 87 Respiratory 16 18 18 Rate Blood Pressure 150/80 O2 Sat by Pulse 98 Oximetry 03/25/17 02:47 Temperature Pulse Rate Respiratory 18 Rate Blood Pressure O2 Sat by Pulse Oximetry ED Medical Decision Making - Lab Data Result diagrams: 03/25/17 01:45 03/25/17 01:02 - Radiology Data Radiology results: image reviewed interpreted by me: Patient has chronic scarring in the bar lateral bases the right lower lobe scarring does appear more prominent on the x-ray today suggestive of a possible superimposed infiltrate Critical care attestation.: If time is entered above; I have spent that time in minutes in the direct care of this critically ill patient, excluding procedure time. ED Disposition Clinical Impression: Dependent edema, Pneumonia Disposition: DC-01 TO HOME OR SELFCARE Is pt being admited?: No Does the pt Need Aspirin: No Condition: Fair Instructions: Community-acquired Pneumonia (ED), Leg Edema (ED) Prescriptions: Doxycycline [Vibramycin CAP] 100 mg PO Q12HR #14 capsule Furosemide [Lasix] 20 mg PO QDAY #7 tablet Referrals: ELLEN RAMOS MD [Primary Care Provider] - 3-5 Days
[2017-03-25] MEDS ORDERED: LASIX IV ONE (01:02)
[2017-03-25] MEDS ORDERED: PERCOCET 5/325 PO ONE (01:02)
[2017-03-25] MEDS ORDERED: DILAUDID IV ONE (02:33)
[2017-03-25] MEDS ORDERED: BENADRYL IV ONE (02:33)
[2017-03-25 02:39] LABS: Hematocrit 27.2 % (30.3-42.9); Hemoglobin 8.8 gm/dl (10.1-14.3); Mean Corpuscular HGB Conc 33 % (30-34); Mean Corpuscular Hemoglobin 28 pg (28-32); Mean Corpuscular Volume 87 fl (79-97); Platelet Count 259 K/mm3 (140-440); Red Blood Count 3.13 M/mm3 (3.65-5.03)
[2017-03-25 02:41] LABS: BUN/Creatinine Ratio 15; Blood Urea Nitrogen 6 mg/dL (7-17); Calcium 8.3 mg/dL (8.4-10.2); Hemolysis Index 8
[2017-03-25] MEDS ORDERED: DILAUDID ONE (02:43)
[2017-03-25 02:50] LABS: Red Cell Distribution Width 20.2 % (13.2-15.2)
--- NOTE | 2017-03-25 03:33 | XRay Report ---
FINAL REPORT PROCEDURE: XR CHEST ROUTINE 2V TECHNIQUE: PA and lateral chest radiographs were obtained. CPT 81982 HISTORY: dyspnea COMPARISON: 07/22/2016 FINDINGS: Heart: Normal. Mediastinum/Vessels: Normal. Lungs/Pleural space: Mild infiltrates bilateral lower lungs.. Bony thorax: No acute osseous abnormality. Other: IMPRESSION: Mild infiltrates bilateral lower lungs..
[2017-03-25 03:46] VITALS: BP 141/55
[2017-03-25] MEDS ORDERED: FLUSH HEPARIN IV ONE (04:18)
[2017-03-25 05:11] LABS: Band Neutrophils # (Manual) 0.2 K/mm3; Total Cells Counted 100
[2017-03-25 05:15] LABS: Anisocytosis 3+; Macrocytosis 1+
[2017-03-25 05:16] LABS: Schistocytes Rare; Sickle Cells 1+; Target Cells 1+
== END 2017-03-25 04:38 | disposition home or self-care (01) ==
LOC: ED 15:29
DX: R60.0 Localized edema (principal); J18.9 Pneumonia, unspecified organism; I10 Essential (primary) hypertension
CPT/HCPCS: 36415; 71046; 80048; 81001; 83880; 85007; 85025; 96374; 96375; 99284; J1170; J1200; J1642; J1940